=== PATIENT | male | born 1975 | race Caucasian/White ===

== ENCOUNTER 2017-03-19 18:51 | Emergency (ER) | payer OTHER ==
[~2017-03-19] VITALS: Ht 172.7 cm; Wt 90.7 kg
[2017-03-19 20:01] LABS: BASOPHILS % (AUTO) 1.1 % (0.0-2.0); EOSINOPHILS % (AUTO) 2.1 % (0.0-3.0); LYMPHOCYTES % (AUTO) 33.7 % (20.0-45.0); MEAN CORPUSCULAR HEMOGLOBIN 33.3 PG (27.0-31.0); MEAN CORPUSCULAR HGB CONC 35.3 G/DL (32.0-36.0); MEAN CORPUSCULAR VOLUME 94 FL (80-99); MEAN PLATELET VOLUME 6.9 FL (6.5-10.1); MONOCYTES % (AUTO) 11.3 % (1.0-10.0); NEUTROPHILS % (AUTO) 51.8 % (45.0-75.0); PLATELET COUNT 260 K/UL (150-450); RED BLOOD COUNT 4.78 M/UL (4.70-6.10); RED CELL DISTRIBUTION WIDTH 11.7 % (11.6-14.8); WHITE BLOOD COUNT 8.4 K/UL (4.8-10.8)
[2017-03-19 20:15] LABS: TROPONIN I < 0.30 ng/mL (<=0.30)
[2017-03-19 20:18] LABS: ALANINE AMINOTRANSFERASE 37 U/L (3-41); ALBUMIN/GLOBULIN RATIO 1.6 (1.0-2.7); ANION GAP 12 (5-15); ASPARTATE AMINO TRANSFERASE 20 U/L (5-40); CALCIUM 9.4 mg/dL (8.6-10.2); CARBON DIOXIDE 24 mEQ/L (20-30); CHLORIDE 100 mEQ/L (98-107); GLOMERULAR FILTRATION RATE > 60 mL/min (>60); HEMOLYSIS 9; SODIUM 136 mEQ/L (135-145); TOTAL PROTEIN 7.7 g/dL (6.6-8.7)
[2017-03-19 20:29] LABS: CKMB 1.6 ng/mL (< 6.7)
--- NOTE | 2017-03-19 21:05 | Emergency Room Report ---
History of Present Illness General Chief Complaint: General Complaint Source: Patient Present Illness HPI This patient presents with a right leg tremor that has been going on for the past few weeks. He notes that it has worsened significantly since starting Abilify. He did have some symptoms prior to starting Abilify but states that he has significantly worsened. He is also had a cough. He states that when he coughs he has pain in his right lower abdomen near her previous hernia surgery. He denies nausea or vomiting. He denies fever or chills. He has no other complaints. Allergies: Coded Allergies: No Known Allergies (Unverified , 03/19/17) Patient History Past Medical History: see triage record Social History: Reports: alcohol use, drug use Reviewed Nursing Documentation: PMH: Agreed, PSxH: Agreed Nursing Documentation-PMH Past Medical History: No History, Except For History Of Psychiatric Problem: Yes - Anxiety, Depression Review of Systems All Other Systems: negative except mentioned in HPI Physical Exam Vital Signs Date Time Temp Pulse Resp B/P Pulse Ox O2 Delivery O2 Flow Rate FiO2 03/19/17 19:05 98.8 96 16 122/90 96 Room Air Sp02 EP Interpretation: reviewed, normal General Appearance: no apparent distress, alert, GCS 15, non-toxic Head: normocephalic, atraumatic Eyes: bilateral eye PERRL, bilateral eye normal inspection ENT: hearing grossly normal, normal pharynx, no angioedema, normal voice Neck: full range of motion, supple/symm/no masses Respiratory: chest non-tender, lungs clear, normal breath sounds, speaking full sentences Cardiovascular #1: regular rate, rhythm, no edema Gastrointestinal: normal bowel sounds, non tender, soft, non-distended, no guarding, no rebound Rectal: deferred Musculoskeletal: back normal, gait/station normal, normal range of motion, non- tender, other - Tremor of R. leg/foot. 5/5 MS throughout. Sensation intact throughout. Neurologic: alert, oriented x3, responsive, motor strength/tone normal, sensory intact, speech normal Psychiatric: judgement/insight normal, memory normal, mood/affect normal, no suicidal/homicidal ideation Skin: normal color, no rash, warm/dry, well hydrated Medical Decision Making Diagnostic Impression: Primary Impression: Tremor ER Course This patient presents with a right lower extremity tremor. The patient neurologically is intact. There is no concern for spinal cord or epidural lesion. I am not concerned about cauda equina. The patient was found to have multiple illicit drugs in his urine drug screen. This could be the etiology. Other considerations include a side effect of the antipsychotic medication that he is on. This could be a form of dyskinesia. Regardless, there is no evidence of emergency medical condition. The patient's chest x-ray is negative with no evidence of pneumonia. Laboratory workup to include CBC, CMP, cardiac enzymes and CK were unremarkable. There is no evidence of hernia on physical exam. I did not identify an emergency medical condition. The patient is instructed to followup with his primary care physician. Labs Test 03/19/17 19:30 03/19/17 19:45 White Blood Count 8.4 K/UL (4.8-10.8) Red Blood Count 4.78 M/UL (4.70-6.10) Hemoglobin 15.9 G/DL (14.2-18.0) Hematocrit 45.1 % (42.0-52.0) Mean Corpuscular Volume 94 FL (80-99) Mean Corpuscular Hemoglobin 33.3 PG (27.0-31.0) Mean Corpuscular Hemoglobin Concent 35.3 G/DL (32.0-36.0) Red Cell Distribution Width 11.7 % (11.6-14.8) Platelet Count 260 K/UL (150-450) Mean Platelet Volume 6.9 FL (6.5-10.1) Neutrophils (%) (Auto) 51.8 % (45.0-75.0) Lymphocytes (%) (Auto) 33.7 % (20.0-45.0) Monocytes (%) (Auto) 11.3 % (1.0-10.0) Eosinophils (%) (Auto) 2.1 % (0.0-3.0) Basophils (%) (Auto) 1.1 % (0.0-2.0) Sodium Level 136 mEQ/L (135-145) Potassium Level 4.0 mEQ/L (3.4-4.9) Chloride Level 100 mEQ/L (98-107) Carbon Dioxide Level 24 mEQ/L (20-30) Anion Gap 12 (5-15) Blood Urea Nitrogen 16 mg/dL (7-23) Creatinine 1.0 mg/dL (0.7-1.2) Estimat Glomerular Filtration Rate > 60 mL/min (>60) Glucose Level 93 mg/dL (74-106) Calcium Level 9.4 mg/dL (8.6-10.2) Total Bilirubin 0.3 mg/dL (0.0-1.2) Aspartate Amino Transf (AST/SGOT) 20 U/L (5-40) Alanine Aminotransferase (ALT/SGPT) 37 U/L (3-41) Alkaline Phosphatase 79 U/L (40-129) Total Creatine Kinase 75 U/L (38-174) Creatine Kinase MB 1.6 ng/mL (< 6.7) Creatine Kinase MB Relative Index 2.1 Troponin I < 0.30 ng/mL (<=0.30) Total Protein 7.7 g/dL (6.6-8.7) Albumin 4.8 g/dL (3.5-5.2) Globulin 2.9 g/dL Albumin/Globulin Ratio 1.6 (1.0-2.7) Urine Opiates Screen Negative (NEGATIVE) Urine Barbiturates Screen Negative (NEGATIVE) Phencyclidine (PCP) Screen Negative (NEGATIVE) Urine Amphetamines Screen Negative (NEGATIVE) Urine Benzodiazepines Screen Positive (NEGATIVE) Urine Cocaine Screen Positive (NEGATIVE) Urine Marijuana (THC) Screen Negative (NEGATIVE) Chest X-Ray Diagnostic Results Chest X-Ray Diagnostic Results : Chest X-Ray Ordered: Yes # of Views/Limited/Complete: 1 View Indication: Chest Pain EP Interpretation: Yes Interpretation: no consolidation, no effusion, no pneumothorax, no acute cardiopulmonary disease Impression: No acute disease Interpreting ER Provider: Bonifacio Last Vital Signs Date Time Temp Pulse Resp B/P Pulse Ox O2 Delivery O2 Flow Rate FiO2 03/19/17 19:05 98.8 96 16 122/90 96 Room Air Status: improved Disposition: HOME, SELF-CARE Condition: Improved Referrals: [facility],REFERRING (PCP) SHMUEL BUTTERFIELD D.O. Mar 19, 2017 21:05
[2017-03-19 21:36] VITALS: BP 119/87
--- NOTE | 2017-03-20 09:12 | Diagnostic Imaging Report ---
Indication: CP Technique: XRAY CHEST 1 V Comparison: None. Findings: The cardiomediastinal silhouette is normal. The lungs are clear. There is no evidence of pleural fluid. The bones are unremarkable. Impression: Normal chest.
== END 2017-03-19 21:35 | disposition home or self-care (01) ==
LOC: EMR 19:45
DX: R25.1 Tremor, unspecified (principal); R05 Cough; F41.9 Anxiety disorder, unspecified; F32.9 Major depressive disorder, single episode, unspecified; F13.90 Sedative, hypnotic, or anxiolytic use, unspecified, uncomplicated
CPT/HCPCS: 36415; 71010; 80053; 80300; 82550; 82553; 84484; 85025; 93005; 96360

== ENCOUNTER 2017-11-27 15:42 | Emergency (ER) | payer OTHER ==
[~2017-11-27] VITALS: Ht 172.7 cm; Wt 83.9 kg
[2017-11-27 15:56] VITALS: BP 131/86
--- NOTE | 2017-11-27 16:15 | Emergency Room Report ---
History of Present Illness General Chief Complaint: Flu Like Symptoms Source: Patient, Medical Record Present Illness HPI 42 yo male patient presents to ER complaining of flu-like symptoms. Reports cough with green sputum. Denies blood in sputum. Also complains of sore throat and body aches. Reports fever to 101 at home; no fever acutely in ER. Denies chest pain, SOB, abdominal pain. Denies nausea, vomiting, diarrhea, MCCARTHY, vision changes. Denies sick contacts at home. Reports "he thinks" he received flu vaccine this year. Patient requests Z-pack. Allergies: Coded Allergies: No Known Allergies (Unverified , 03/19/17) Patient History Past Medical History: see triage record Reviewed Nursing Documentation: PMH: Agreed; PSxH: Agreed Nursing Documentation-PMH Past Medical History: No History, Except For Review of Systems All Other Systems: negative except mentioned in HPI Physical Exam Vital Signs Date Time Temp Pulse Resp B/P (MAP) Pulse Ox O2 Delivery O2 Flow Rate FiO2 11/27/17 15:56 98.3 98 18 131/86 96 Room Air 98.2 Sp02 EP Interpretation: reviewed, normal General Appearance: well appearing, no apparent distress, alert, GCS 15, non- toxic Head: normocephalic, atraumatic ENT: hearing grossly normal, normal pharynx, no angioedema, normal voice, TMs + canals normal, uvula midline, moist mucus membranes, other - no uvular deviation Neck: full range of motion Respiratory: lungs clear, normal breath sounds, no rhonchi, no respiratory distress, no accessory muscle use, no wheezing, speaking full sentences Cardiovascular #1: regular rate, rhythm, no edema Gastrointestinal: non tender, soft, no mass, non-distended, no guarding, no rebound Musculoskeletal: back normal, digits/nails normal, gait/station normal, normal range of motion, non-tender Neurologic: alert, oriented x3, responsive, motor strength/tone normal, sensory intact Psychiatric: mood/affect normal Skin: no rash Lymphatic: no adenopathy Medical Decision Making PA Attestation Dr. Madsen is my supervising Physician whom patient management has been discussed with. Diagnostic Impression: Primary Impression: Upper respiratory tract infection ER Course Pt presents to ED c/o cough and fever. DDX considered but are not limited to influenza, viral URI, strep throat, rhinitis, sinusitis, otitis media. PE benign, no abnormal lungs sounds, clear to auscultation, no pharyngeal erythema, no exudates on tonsils, no lymphadenopathy. VITAL SIGNS are WNL, patient is afebrile. ER COURSE Does not require labs or imaging at this time. Patient requesting Zpack, informed not required at this time. Informed patient does not need abx at this time. Likely viral cause of symptoms. Sore throat possibly caused by cough. Will provide Tamiflu, does not cure influenza, decreased duration of symptoms. Patient instructed on supportive treatment at home. Followup with primary care provider. DISCHARGE: At this time pt is stable for d/c to home. Patient is resting comfortably, in no acute distress, nontoxic appearing, smiling and talking without difficulty. -Rx given for Tylenol/Acetaminophen -Rx given for Promethazine syrup for cough sx. -Rx given for Tamiflu for influenza. Patient to take medications as instructed Will provide with patient care instructions and any necessary prescriptions. Care plan and follow-up instructions provided. Patient instructed to follow-up with primary care provider in 3 - 5 days. Patient questions asked and answered. Patient reports understanding and agreement to treatment plan. ER precautions given. Patient instructed to return to ER immediately for any new or worsening of symptoms including but not limited to increasing SOB, persistent fever. Last Vital Signs Date Time Temp Pulse Resp B/P (MAP) Pulse Ox O2 Delivery O2 Flow Rate FiO2 11/27/17 15:56 98.3 98 18 131/86 96 Room Air 98.2 Disposition: HOME, SELF-CARE Condition: Stable Scripts Oseltamivir Phosphate (Tamiflu) 75 Mg Capsule 75 MG ORAL TWICE A DAY for 5 Days, #10 CAP Prov: Juan James 11/27/17 Promethazine Hcl (PROMETHAZINE HCL*) 6.25 Mg/5 Ml Syrup 5 ML ORAL Q8H, #120 ML 0 Refills Prov: Juan James 11/27/17 Acetaminophen* (TYLENOL EXTRA STRENGTH*) 500 Mg Tablet 500 MG ORAL Q8H PRN for Prn Headache/Temp > 101, #30 TAB 0 Refills Prov: Juan James 11/27/17 Patient Instructions: Upper Respiratory Infection, Adult, [id number] Additional Instructions: Followup with primary care provider in 3 -5 days. Take medications as directed. Patient questions asked and answered. ER precautions given, patient instructed to return to ER immediately for any new or worsening of symptoms. Juan James Nov 27, 2017 16:15
[2017-11-27] MEDS ORDERED: TYLENOL EXTRA500 MG ORAL (16:24)
[2017-11-27] MEDS ORDERED: PROMETHAZI6.25 MG/1 ORAL (16:24)
[2017-11-27] MEDS ORDERED: TAMIFLU75 MG ORAL (16:24)
[2017-11-27 16:39] VITALS: BP 131/86
== END 2017-11-27 16:39 | disposition home or self-care (01) ==
LOC: EMR 16:10
DX: J06.9 Acute upper respiratory infection, unspecified (principal)
CPT/HCPCS: 99284